=== PATIENT | female | born 1945 | race Caucasian/White ===

== ENCOUNTER 2019-07-30 15:45 | Emergency (ER) | payer OTHER ==
[~2019-07-30] VITALS: Ht 139.7 cm; Wt 74.8 kg
[2019-07-30 15:58] VITALS: BP 132/81
[2019-07-30] MEDS ORDERED: KETOROLAC 60 MG/2 ML VIAL IM ONE (19:30)
[2019-07-30 19:51] VITALS: BP 134/85
== END 2019-07-30 19:51 | disposition home or self-care (01) ==
LOC: MED 15:45
DX: S80.02XA Contusion of left knee, initial encounter (principal); E11.9 Type 2 diabetes mellitus without complications; I10 Essential (primary) hypertension; Z98.890 Other specified postprocedural states; W18.39XA Other fall on same level, initial encounter; Y92.89 Other specified places as the place of occurrence of the external cause; Y93.89 Activity, other specified; Y99.8 Other external cause status
CPT/HCPCS: 73562; 96372; 99283; J1885